=== PATIENT | female | born 1955 | race Caucasian/White ===

== ENCOUNTER 2016-11-17 16:58 | Emergency (ER) | payer OTHER ==
[~2016-11-17] VITALS: Ht 160 cm; Wt 56.8 kg
[~2016-11-17 16:58] MED LIST: CHOL10008 PO; GINK120T4 PO; GLUC-120 PO; IBUP400T22 PO; LISI-606 PO; LYSI500T3 PO; OMEG500C PO; RED30POW MC
[2016-11-17 17:05] VITALS: BP 120/72; PULSE 82; RESP 20; O2SAT 99
--- NOTE | 2016-11-17 17:36 | ED.REPORT ---
HPI-Bite: Human/Animal Date of Service Nov 17, 2016 ED Provider: Walt Vinson MD The patient is a 61 year old female who presents to the ED due to a cat bite on her left hand at 1000 yesterday morning. She went to immediately after the incident and was placed on Cephalexin. She had the first dose of 10pm last night and the second dose of 0630 this morning. She was seen in urgent care and received a dose of ceftriaxone and Flagyl. She has been given a prescription for Augmentin..She is up-to-date on her tetanus shot. The cat had a rabies shot. Nose some increasing redness tonight, says instructed to come to the ED. Nursing Notes Stated Complaint: CAT BITE Chief Complaint: Skin Rash/Abscess Nursing Notes Reviewed: Yes ([facility] not reconciled) Allergies: Coded Allergies: No Known Allergies (Verified , 03/06/16) Scheduled Amoxicillin/Clav K 875-125 mg (Augmentin 875-125 mg) 1 Each Tablet 1 TABLET PO BID Cholecalciferol (Vitamin D3) (Vitamin D3) 1,000 Unit Tab.chew 1,200 UNIT PO DAILY Ginkgo Biloba (Ginkgo Biloba) 120 Mg Tablet 120 MG PO DAILY Gluc 2Kcl/Chondr/Monet Hy/Hy AC (Glucosamine & Chondroitin Cap) 1 Each Capsule 1 EACH PO DAILY Lysine (Lysine) 500 Mg Tablet 500 MG PO DAILY Metronidazole (Metronidazole) 500 Mg Tablet 500 MG PO TID Nebo-3 Fatty Acids (Fish Oil) 500 Mg Capsule.dr 2,000 MG PO DAILY Red Yeast Rice Extract (Red Yeast Rice) 30 Gm Powder 1,200 GM MC DAILY Scheduled PRN Ibuprofen (Ibuprofen) 400 Mg Tablet 400 MG PO QID PRN PRN For Pain General Time Seen by MD: 17:23 Chief Complaint Cat bite Hx Obtained From: Patient Arrived By: Walk-in Onset Occurred: Yesterday Context of Onset: Vaccinations up to date Symptom Duration: Since onset Location: : Hand left: Wrist left Quality: Painful Severity: Current: Mild Recent Healthcare: Recent doctor visit Similar Sx Previous: Yes Past Medical History Past Medical History HTN History of anemia History of attention deficit disorder History of major depression Past Surgical History Closed reduction and pinning of right index finger in 2006, with repeat ORIF in 2007 Reports: Tonsillectomy Smoking History Former Smoker (quit 1979), Never Smoker Social History adopted Alcohol Use: Denies alcohol use Drug Use: Denies drug use Review of Systems Skin: Reports Bruising, Reports Swelling (cat bite left hand and left wrist) Complete sys rev & neg: except as marked. Physical Exam Vital Signs Vital Signs (First) Date Time Temp Pulse Resp B/P Pulse Ox O2 Delivery O2 Flow Rate FiO2 11/17/16 17:05 37 82 20 120/72 99 Room Air Initial VS: Reviewed, Vital signs normal Head / Eyes: Atraumatic, Normocephalic ENT: Mucous membranes moist, Conjunctiva normal Neck: Supple, Non-tender Respiratory: Breath sounds normal, Clear to auscultation Cardiovascular: Regular rate & rhythm, Heart sounds normal Abdomen / GI: Soft, Non-tender Neurologic: Alert, Oriented Psychiatric: Mood/affect normal, Behavior normal General/Constitutional: Awake, Alert, Well appearing, Cooperative Trauma / Burn / Environmental: Positive: Bite injury cellulitis all along dorsal of left hand extending 1 inch into proximal wrist redness into palm no swelling of fingers decreased flexion of fingers secondary to pain good pulses no palpable foreign body Interpretation & Diagnostics Interpretation & Diagnostics: LEFT HAND X-RAY IMPRESSION: 1. Soft tissue swelling without discrete soft tissue gas or radiopaque foreign bodies. 2. No fractures or cortical defects. Dictated by: Mitchell Soliz M.D. on 11/17/2016 at 18:17 Approved by: Mitchell Soliz M.D. on 11/17/2016 at 18:19 Lab Results Interpretation Result Diagram: 11/17/16 1837 11/17/16 1837 Test 11/17/16 18:37 White Blood Count 10.7th/mm3 (3.8-10.1) Red Blood Count 4.84mil/mm3 (3.90-5.20) Hemoglobin 13.1g/dL (12.0-15.6) Hematocrit 40.4% (35.0-46.0) Mean Corpuscular Volume 83.5fL (81-100) Mean Corpuscular Hemoglobin 27.1pg (27.0-35.0) Mean Corpuscular Hemoglobin Concent 32.4% (32.0-37.0) Red Cell Distribution Width 15.3% (12.3-15.4) Platelet Count 288bil/L (150-400) Neutrophils (%) (Auto) 76.6% (40-74) Lymphocytes (%) (Auto) 13.4% (14-46) Monocytes (%) (Auto) 8.7% (4-12) Eosinophils (%) (Auto) 0.8% (0-5) Basophils (%) (Auto) 0.3% (0-3) Sodium Level 138mEq/L (134-144) Potassium Level 4.0mEq/L (3.5-5.2) Chloride Level 101mEq/L (97-108) Carbon Dioxide Level 22mmol/L (18-29) Blood Urea Nitrogen 15mg/dL (8-27) Creatinine 0.59mg/dL (0.57-1.00) Estimat Glomerular Filtration Rate 148mL/min (>59) Glucose Level 116mg/dL (60-99) Calcium Level 9.9mg/dL (8.5-10.1) Total Bilirubin 0.3mg/dL (0.0-1.2) Aspartate Amino Transf (AST/SGOT) 29U/L (0-50) Alanine Aminotransferase (ALT/SGPT) 17U/L (0-32) Alkaline Phosphatase 95U/L (25-165) Total Protein 7.9g/dL (6.4-8.4) Albumin 4.5g/dL (3.4-5.0) Lab Results Interpretation: CBC normal and CMP normal Re-Eval/Medical Decision Med Decision/Clinical Course This is a 61-year-old female presents with an infected cat bite. Injury occurred yesterday and she has developed cellulitis along the dorsum of the hand extending about an inch up the wrist as well. This had no fevers, chills or systemic symptoms, but up and started on cephalexin yesterday, and given a dose of ceftriaxone with a prescription to start Augmentin today. With worsening symptoms called and was directed to come to the ED. She does have significant cellulitis, no signs of abscess, physical exam several retained foreign body, no evidence of tendon involvement clinically. Radiographs were negative. Patient received an IV dose of Unasyn with an additional by mouth dose of probenecid improved for drug levels. Discussed the possibility of admission given the infection likely represents PE multiple code and has been worsening. For the patient's not really had aggressive Vicryl Chloe coverage for this particular bacteria and really his only hidalgo a single dose of Augmentin. The patient states she lives close and will prefer to go home-so I talked to Dr. Hogan edge bonder for her PCP and who saw her earleir today - and we set the patient up to get a dose of Unasyn here, but to return to the [facility] tomorrow morning, and then again tomorrow afternoon for 2 doses of Unasyn, and about the patient to take a dose of Augmentin in between. This will allow some additional time to see the patient actually response to therapy. Patient is completely comfortable returning to the emergency department if symptoms worsen in the interim or she develops new symptoms. If she is doing well tomorrow, after the Unasyn, she will follow up on Saturday with the PCP for recheck. She declined Any pain medicines. She is discharged in stable condition. The area of cellulitis is been delineated with a skin pen. Old records Re-Evaluation/Progress : Time of Eval: 17:48 Re-Evaluation/Progress Note: Pt rechecked. Plan for IV antibiotic. Counseled Regarding: Diagnosis, Lab results, Need for follow-up, When/why to return to ED Discharge & Departure Impression: Primary Impression: Cat bite of left hand with infection Encounter type: initial encounter Qualified Code: S61.452A - Open bite of left hand, initial encounter Disposition: Home Discharge Condition All VS Reviewed: Yes Condition: Stable Additional Instructions: 1. You received a dose of the antibiotic Unasyn in the ED intravenously. This antibiotic works well against the bacteria p. multicoda which is often the cause of this type of rapidly developing infection caused by a cat bite. 2. Take your dose of Augmentin (amoxicillin-clavulanate) tonight. 3. Leave the IV in place and return to the hospital tomorrow morning at 8am - bring this paper with you and come to the emergency department TRIAGE (do not register) and we will get you to the "[facility]" where you can receive a dose of antibiotics tomorrow morning. 4. Then take another dose of Augmentin at lunch, and return in the evening for another dose of IV antibiotics tomorrow. 5. Then Saturday resume the Augmentin TWICE day. 6. Continue your probiotic dialy and continue for 1-2 weeks after finishing the antibiotics. 6. Symptoms should be clearly starting to improve by Saturday early afternoon. 7. If not improving, or if symptoms are worsening - return directly to the ED. Referrals: Saran Braden MD (PCP) Fredy Attestation Portion of this note were transcribed by Latisha Mijares. I, Dr. Vinson, personally performed the history, physical exam, and medical decision-making: I reviewed and confirmed the accuracy for the information in the transcribed note. Signed by: fredy Pena, 11/17/16 1700 copies to: Saran Braden MD, Matthew F MD Nov 17, 2016 17:36 Latisha Mijares Nov 17, 2016 17:47
[2016-11-17] MEDS ORDERED: AMOX-366 PO (17:50)
[2016-11-17] MEDS ORDERED: Ampicillin-Sulbactam Inj 3,000 MG in 0.9% Sodium Chloride 100 ML IV ONE (17:50)
[2016-11-17] MEDS ORDERED: METR500T19 PO (17:50)
--- NOTE | 2016-11-17 18:21 | DRSVH ---
PROCEDURE: X-RAY LEFT HAND, MINIMUM THREE VIEWS ([id number]) INDICATIONS: pain, swelling after catbite TECHNIQUE: 3 views of the hand(s) acquired. COMPARISON: None. FINDINGS: Bones: No fractures or dislocations. No discrete cortical defects identified. There is severe narr owing of the 1st carpometacarpal joint with subchondral sclerosis. No bony erosions or periosteal re action. Soft tissues: There is soft tissue swelling in the hand most prominent dorsally. No definite soft ti ssue gas or radiopaque foreign bodies. No suspicious soft tissue calcifications. IMPRESSION: 1. Soft tissue swelling without discrete soft tissue gas or radiopaque foreign bodies. 2. No fractures or cortical defects. Dictated by: Mitchell Soliz M.D. on 11/17/2016 at 18:17 Approved by: Mitchell Soliz M.D. on 11/17/2016 at 18:19
[2016-11-17 18:27] VITALS: BP 117/72; PULSE 72; RESP 16; O2SAT 98
[2016-11-17 18:55] LABS: BASOPHILS % (AUTO) 0.3 % (0-3); EOSINOPHILS % (AUTO) 0.8 % (0-5); MONOCYTES % (AUTO) 8.7 % (4-12); Mean Corpuscular Hemoglobin 27.1 pg (27.0-35.0); Mean Corpuscular Volume 83.5 fL (81-100); NEUTROPHILS % (AUTO) 76.6 % (40-74); Platelet Count 288 bil/L (150-400)
[2016-11-17 20:01] VITALS: BP 121/78; PULSE 68; RESP 18; O2SAT 97
== END 2016-11-17 20:03 | disposition home or self-care (01) ==
LOC: SED 16:58
DX: S61.452A Open bite of left hand, initial encounter (principal); L03.114 Cellulitis of left upper limb; W55.01XA Bitten by cat, initial encounter; Y93.89 Activity, other specified; Y99.8 Other external cause status; I10 Essential (primary) hypertension; Z87.891 Personal history of nicotine dependence
CPT/HCPCS: 36415; 73130; 80053; 85025; 96365; 96366; 99284; J0295